=== PATIENT | male | born 1965 ===

== ENCOUNTER 2020-01-08 06:30 | Day surgery (SDC) | payer OTHER ==
[~2020-01-08 06:30] MED LIST: CRESTOR20 MG PO; UROXATRAL10 MG; ZESTRIL20 MG PO
[2020-01-08] MEDS ORDERED: PERCOCET 5-3251 EACH PO (10:49)
== END 2020-01-08 14:45 | disposition home or self-care (01) ==
LOC: CIR.AMB 06:30
PROVIDERS: ATTEND Surgery
DX: D35.1 Benign neoplasm of parathyroid gland (principal)